=== PATIENT | female | born 1990 | race Two or more races ===

== ENCOUNTER 2019-02-26 05:06 | Emergency (ER) | payer OTHER, MEDICAID ==
[~2019-02-26] VITALS: Ht 170.2 cm; Wt 62.0 kg
[2019-02-26 06:41] VITALS: BP 129/89
== END 2019-02-26 06:42 | disposition home or self-care (01) ==
LOC: ER 05:06
DX: R68.89 Other general symptoms and signs (principal)
CPT/HCPCS: 99283